=== PATIENT | female | born 1975 | race Caucasian/White ===

== ENCOUNTER 2019-11-21 13:55 | Emergency (ER) | payer OTHER, SELFPAY ==
[2019-11-21 14:09] VITALS: BP 164/99; PULSE 84; RESP 16; TEMP 36.9; O2SAT 97; BMI 29.5
--- NOTE | 2019-11-21 14:25 | XR_ITS ---
WS: [id number] Portable AP upright chest, 11/21/2019 Clinical Data: indigestion/chest pain Comparison: None. Findings: No nodules, masses or effusions are seen. The heart is normal. The pulmonary vascularity is not increased. No pneumonia or pneumothorax is seen. XR/XR chest 1V [id number] Impression: Negative chest.
--- NOTE | 2019-11-21 14:26 | ECG_ITS ---
Measurements Intervals [place] Rate: 74 P: 53 RI: 112 QRS: 26 QRSD: 89 T: 14 QT: 357 QTc: 396 SINUS RHYTHM WITH SHORT RI INTERVAL NONSPECIFIC T-WAVE ABNORMALITY Compared to ECG 04/19/2016 12:25:18 No significant changes Electronically Signed On 11-21-2019 17:08:46 SPEECH AND HEARING CLINIC DIRECTOR by Sophia Centeno M.D. [id number]
[2019-11-21 15:12] LABS: Basophils # 0.1 10^3/uL (0.0-0.1); Basophils % 0.5 %; Eosinophils # 0.1 10^3/uL (0.0-0.8); Hematocrit 35.1 % (37.0-47.0); Hemoglobin 10.7 g/dL (11.5-15.3); Lymphocytes # 2.6 10^3/uL (0.8-4.8); Lymphocytes % 23.5 %; Mean Corpuscular HGB Conc 30.5 g/dL (30.0-36.0); Mean Corpuscular Hemoglobin 24.4 pg (28.0-34.0); Mean Platelet Volume 8.8 fL (7.4-10.4); Monocytes # 0.8 10^3/uL (0.2-0.9); Monocytes % 7.2 %; Neutrophils # 7.5 10^3/uL (1.8-7.7); Neutrophils % 67.5 %; Nucleated Red Blood Cells % 0 %; Platelet Count 444 10^3/cmm (130-400); Red Blood Count 4.39 10^6/uL (4.1-5.3); Red Cell Distribution Width 14.6 % (12.1-15.1); White Blood Count 11.1 10^3/uL (4.0-10.0)
[2019-11-21 15:56] LABS: Alanine Aminotransferase 11 U/L (0-33); Albumin Level 4.8 g/dL (3.5-5.2); Alkaline Phosphatase 83 IU/L (35-105); Aspartate Amino Transferase 14 U/L (0-32); Blood Urea Nitrogen 10 mg/dL (6-20); Calcium 9.5 mg/Dl (8.6-10.0); Carbon Dioxide 23 mmol/L (22-29); Chloride 103 mmol/L (98-107); Globulin 2.6 g/dL (1.3-4.6); Glomerular Filtration Rate 78.3 mL/min (90-130); Glucose 92 mg/dL (74-109); Sodium 137 mmol/L (136-145); Total Bilirubin 0.2 mg/dL (0.15-1.2); Total Protein 7.4 g/dL (6.6-8.7)
[2019-11-21 15:58] LABS: Troponin(5th) Baseline 6 ng/mL (0-10)
[2019-11-21 17:16] LABS: Troponin 5 2HR 8.27 ng/mL (0-10)
[2019-11-21 17:54] LABS: Troponin 5 2HR Delta 2.27 ABS# (0-10)
--- NOTE | 2019-11-21 19:10 | W.ED.GENADLT ---
HPI - General Adult General: Chief complaint: General Medical, Adult Stated complaint: high bp Time Seen by Provider: 11/21/19 19:10 History of Present Illness: MD complaint: b/p up last couple of days, family hx, pt is smoker, had nose bleed yesterd Onset (ago): day(s) Associated symptoms: Deny chest pain, dyspnea, headache(s), nausea, rash or vomiting Review of Systems Const: Denies: fever, chills or body aches Eyes: Denies: change in vision or blurry vision ENMT: Denies: throat pain or nasal congestion Card: Denies: chest pain or shortness of breath on exertion Resp: Denies: shortness of breath, productive cough or non-productive cough GI: Denies: abdominal pain, nausea or vomiting Musc: Denies: extremity pain Skin/Breast: Denies: rash Neuro: Denies: headache Psych: Denies: anxiety or depression Berny/Lymph: Denies: easy bruising PFSH ED PFSH: Statuses (acute, chronic, etc) shown below reflect problem list status as previously entered and may not be historically accurate Family History (Updated 11/21/19 @ 19:18 by PARIS Carroll) Mother Hypertension Social History Smoking and tobacco status: current every day smoker Physical Exam Const: COMMON NORMALS: no apparent distress, average body habitus and oriented x3 HENMT: COMMON NORMALS: normocephalic HEAD & SCALP: normal to inspection and normocephalic FACE & SINUS: normal facial exam Eye: COMMON NORMALS: conjunctivae normal GENERAL EYE: normal appearance of both eyes CONJUNCTIVA: Yes conjunctivae normal Neck/C-Spine: COMMON NORMALS: no JVD Chest: COMMONS NORMALS: inspection of chest normal Resp: COMMON NORMALS: normal respiratory effort and clear to auscultation bilaterally AUSCULTATION: clear to auscultation bilaterally Cardio: COMMON NORMALS: no JVD, regular rate and regular rhythm RATE: regular rate RHYTHM: regular rhythm GI: COMMON NORMALS: normal to inspection, nondistended, normoactive bowel sounds Extremity: COMMON NORMALS: normal to inspection and full ROM Neuro: COMMON NORMALS: oriented x3 Course Vital Signs: Vital signs: Vital Signs Temperature 98.5 F 11/21/19 14:09 Pulse Rate 80 01/02/20 19:22 Respiratory Rate 18 11/21/19 19:22 Blood Pressure 153/88 11/21/19 19:22 Pulse Oximetry 96 11/21/19 19:22 [facility] - General Adult Lab Data: Labs: Lab Results 11/21/19 11/21/19 11/21/19 Range/Units 14:45 14:45 14:45 WBC 11.1 H (4.0-10.0) 10^3/ uL RBC 4.39 (4.1-5.3) 10^6/u L Hgb 10.7 L (11.5-15.3) g/dL Hct 35.1 L (37.0-47.0) % MCV 80.0 L (81-99) fL MCH 24.4 L (28.0-34.0) pg MCHC 30.5 (30.0-36.0) g/dL RDW 14.6 (12.1-15.1) % Plt Count 444 H (130-400) 10^3/c mm MPV 8.8 (7.4-10.4) fL Neut % (Auto) 67.5 % Lymph % (Auto) 23.5 % [place] % (Auto) 7.2 % Eos % (Auto) 1.0 % Baso % (Auto) 0.5 % Neut # (Auto) 7.5 (1.8-7.7) 10^3/u L Lymph # (Auto) 2.6 (0.8-4.8) 10^3/u L [place] # (Auto) 0.8 (0.2-0.9) 10^3/u L Eos # (Auto) 0.1 (0.0-0.8) 10^3/u L Baso # (Auto) 0.1 (0.0-0.1) 10^3/u L Nucleated RBC % (a uto) 0 % Nucleated RBCs # 0.0 /100WBC Sodium 137 (136-145) mmol/L Potassium 4.0 (3.5-5.1) mmol/L Chloride 103 (98-107) mmol/L Carbon Dioxide 23 (22-29) mmol/L Anion Gap 15.0 (5-19) BUN 10 (6-20) mg/dL Creatinine 0.8 (0.5-0.9) mg/dL GFR Calculation 78.3 L (90-130) mL/min Glucose 92 (74-109) mg/dL Calcium 9.5 (8.6-10.0) mg/Dl Total Bilirubin 0.2 (0.15-1.2) mg/dL AST 14 (0-32) U/L ALT 11 (0-33) U/L Alkaline Phosphata se 83 (35-105) IU/L Troponin T Baselin e 6 (0-10) ng/mL Troponin T 120 Min [place] (0-10) ng/mL Delta Troponin T (0-10) ABS# Total Protein 7.4 (6.6-8.7) g/dL Albumin 4.8 (3.5-5.2) g/dL Globulin 2.6 (1.3-4.6) g/dL 11/21/19 Range/Units 16:52 WBC (4.0-10.0) 10^3/ uL RBC (4.1-5.3) 10^6/u L Hgb (11.5-15.3) g/dL Hct (37.0-47.0) % MCV (81-99) fL MCH (28.0-34.0) pg MCHC (30.0-36.0) g/dL RDW (12.1-15.1) % Plt Count (130-400) 10^3/c mm MPV (7.4-10.4) fL Neut % (Auto) % Lymph % (Auto) % [place] % (Auto) % Eos % (Auto) % Baso % (Auto) % Neut # (Auto) (1.8-7.7) 10^3/u L Lymph # (Auto) (0.8-4.8) 10^3/u L [place] # (Auto) (0.2-0.9) 10^3/u L Eos # (Auto) (0.0-0.8) 10^3/u L Baso # (Auto) (0.0-0.1) 10^3/u L Nucleated RBC % (a uto) % Nucleated RBCs # /100WBC Sodium (136-145) mmol/L Potassium (3.5-5.1) mmol/L Chloride (98-107) mmol/L Carbon Dioxide (22-29) mmol/L Anion Gap (5-19) BUN (6-20) mg/dL Creatinine (0.5-0.9) mg/dL GFR Calculation (90-130) mL/min Glucose (74-109) mg/dL Calcium (8.6-10.0) mg/Dl Total Bilirubin (0.15-1.2) mg/dL AST (0-32) U/L ALT (0-33) U/L Alkaline Phosphata se (35-105) IU/L Troponin T Baselin e (0-10) ng/mL Troponin T 120 Min [place] 8.27 (0-10) ng/mL Delta Troponin T 2.27 (0-10) ABS# Total Protein (6.6-8.7) g/dL Albumin (3.5-5.2) g/dL Globulin (1.3-4.6) g/dL Discharge Plan Discharge Patient Disposition: Home, Self-Care Clinical Impression: HTN (hypertension) Qualifiers: Hypertension type: essential hypertension Qualified Code(s): I10 - Essential (primary) hypertension Condition: Stable Prescriptions: No Action No Known Home Medications RF: 0 Referrals: Dhruv Aguilar [Family Provider] - Patient Instructions: Chronic Hypertension (ED) Activity Restrictions/Additional Instructions: follow up with family provider, take medicine as prescribed Coding Level of Care Code ED Api Product Manager for Chg Fwd Exam Problem Focused
[2019-11-21 19:22] VITALS: BP 153/88; PULSE 80; RESP 18; O2SAT 96
[2019-11-21] MEDS: lisinopril 10 mg Tablet PO (19:28)
[2019-11-21 19:46] VITALS: BP 166/106; PULSE 70; RESP 18; TEMP 36.8; O2SAT 97
--- NOTE | 2019-11-21 20:26 | ECG_ITS ---
Measurements Intervals [place] Rate: 69 P: 53 TN: 113 QRS: 22 QRSD: 98 T: 28 QT: 384 QTc: 414 SINUS RHYTHM WITH SHORT [place] INTERVAL Compared to ECG 04/19/2016 12:25:18 T-wave abnormality no longer present Electronically Signed On 11-21-2019 17:09:51 QUENCHING MACHINE OPERATOR by Sophia Centeno M.D. [id number]
== END 2019-11-21 19:50 | disposition home or self-care (01) ==
PROVIDERS: Physician Assistant; Emergency Provider Nurse Practitioner Family; Family Provider Physician Assistant
DX: I10 Essential (primary) hypertension (principal); F17.210 Nicotine dependence, cigarettes, uncomplicated
CPT/HCPCS: 36415; 71045; 80053; 84484; 85025; 93005; 99281

== ENCOUNTER 2022-02-16 02:54 | Emergency (ER) | payer SELFPAY ==
[2022-02-16 02:59] VITALS: BP 167/111; PULSE 76; RESP 19; O2SAT 98; BMI 22.0
--- NOTE | 2022-02-16 03:04 | CTR_ITS ---
PROCEDURE INFORMATION: Exam: CT Head Without Contrast Exam date and time: 02/16/2022 3:25 AM Age: 46 years old Clinical indication: Pain; Headache; Patient HX: C/O migraine with hypertension. ; Additional info: GALVAN TECHNIQUE: Imaging protocol: Computed tomography of the head without contrast. Radiation optimization: All CT scans at this facility use at least one of these dose optimization techniques: automated exposure control; mA and/or kV adjustment per patient size (includes targeted exams where dose is matched to clinical indication); or iterative reconstruction. COMPARISON: No relevant prior studies available. RADIATION DOSE METRICS: Total DLP (mGy-cm): 1315.35 FINDINGS: Brain: No acute intracranial hemorrhage or mass effect. No definite acute infarct by CT. Cerebral ventricles: Ventricle size is normal for age. Paranasal sinuses: Included paranasal sinuses are essentially clear. Mastoid air cells: No significant acute finding. Vasculature: Vascular calcifications in the internal carotid and vertebral basilar systems. Bones/joints: No definite acute skull fracture. Soft tissues: No significant acute finding. CT/CT head wo con* [id number] IMPRESSION: 1. No acute intracranial hemorrhage or mass effect. 2. Other findings discussed above. 3. Some limitations due to artifact from patient motion.
--- NOTE | 2022-02-16 03:06 | ED_ITS ---
HPI - Headache General: Chief Complaint: Headache Stated Complaint: Migrane Headache with High Blood Pressure Time Seen by Provider: 02/16/22 02:55 Source: patient Mode of arrival: ambulatory Limitations: no limitations History of Present Illness: 46-year-old female who states that she has had a headache since roughly 9 PM. States she does have a history of high blood pressure supposed to be on lisinopril has not been taking it for months. States that her blood pressure is high and she gets headaches like this when she gets hypertension. States the headaches an 8 out of 10 denies being the worst headache of her life denies any vomiting denies any fevers. She denies any worsening improving factors. Associated symptoms: Deny chest pain, fever(s), nausea, rash or vomiting Review of Systems Const: Denies: fever(s), chills, body aches or change in appetite Eyes: Denies: blurry vision or eye discomfort ENMT: Denies: throat pain or dental pain Card: Denies: chest pain Resp: Denies: dyspnea GI: Denies: abdominal pain, nausea, vomiting or diarrhea : Denies: dysuria Musc: Denies: neck pain or back pain Skin/Breast: Denies: rash Neuro: Reports: headache(s) Psych: Denies: depression Berny/Lymph: Denies: easy bruising All/Imm: Denies: urticaria PFSH ED PFSH: Medical History Hypertension Family History Mother Hypertension Social History Smoking and tobacco status: current every day smoker Physical Exam Const: COMMON NORMALS: no acute distress, patient oriented x3 and healthy appearing HENMT: COMMON NORMALS: normocephalic and atraumatic HEAD & SCALP: normocephalic and atraumatic Eye: COMMON NORMALS: Equal, round and reactive pupils present and EOMs intact bilaterally PUPIL: Yes Equal, round and reactive pupils present Neck/C-Spine: COMMON NORMALS: full ROM and supple Chest: COMMONS NORMALS: normal inspection of the chest and normal palpation of entire chest wall Resp: COMMON NORMALS: normal respiratory effort, No retractions, No use of accessory muscles and clear to auscultation bilaterally AUSCULTATION: clear to auscultation bilaterally Cardio: COMMON NORMALS: regular rate, regular rhythm and No murmurs present (Cardio) RATE: regular rate RHYTHM: regular rhythm GI: COMMON NORMALS: Normal to inspection, nondistended, normoactive bowel sounds present, Soft to palpation, non-tender and no masses PALPATION: Yes Soft to palpation Extremity: COMMON NORMALS: normal to inspection and full ROM Neuro: COMMON NORMALS: patient oriented x3, moves all extremities and no focal motor deficits Psych: COMMON NORMALS: mental status grossly normal, Normal thought process present and cooperative THOUGHT PROCESS: Normal thought process present Skin: COMMON NORMALS: no rashes or lesions noted and no wounds GENERAL SKIN EXAM: no rashes or lesions noted Course Vital Signs: Vital signs: Vital Signs Pulse Rate 76 02/16/22 04:08 Respiratory Rate 18 02/16/22 04:08 Blood Pressure 146/81 02/16/22 04:08 Pulse Oximetry 98 02/16/22 04:08 MDM - Headache Medical Decision Making Patient presents here with a headache that is likely blood pressure related her headaches much improved here after Reglan and Benadryl blood pressure is improved as well. She has been noncompliant on her blood pressure medicines head CT is normal she has no signs of meningitis or subarachnoid hemorrhage or aneurysm. We will start her back on her lisinopril she is to follow-up with PCP and return if worsening. Lab Data Radiology Impressions Head CT 02/16/22 03:04 IMPRESSION: 1. No acute intracranial hemorrhage or mass effect. 2. Other findings discussed above. 3. Some limitations due to artifact from patient motion. Discharge Plan Discharge Patient Disposition: Home Clinical Impression: Headache Qualifiers: Headache type: unspecified Headache chronicity pattern: acute headache Intractability: not intractable Qualified Code(s): R51.9 - Headache, unspecified Hypertension Qualifiers: Hypertension type: unspecified Qualified Code(s): I10 - Essential (primary) hypertension Condition: Stable Prescriptions: Continued lisinopril 10 mg tablet 10 mg PO DAILY Qty: 60 0RF Discharge Orders: Discharge ED (Routine); Ordered 02/16/22 Ordered By: Tre Regalado Referrals: Dhruv Aguilar [Referring] - 1-3 days Discharge Diet: Advance as tolerated Discharge Activity: Resume usual activity Patient Instructions: Acute Headache (ED), Hypertension (ED) Coding Level of Care Code ED Vice President [employer] Insights for Chg Fwd Exam Comprehensive
[2022-02-16] MEDS: metoclopramide 5 mg/mL SDV 2 mL 10 MG IVP (03:11)
[2022-02-16] MEDS: diphenhydrAMINE 50 mg/mL SDV 1mL IVP (03:12)
[2022-02-16 04:08] VITALS: BP 146/81; PULSE 76; RESP 18; O2SAT 98
[2022-02-16 04:19] VITALS: BP 146/81; PULSE 76; RESP 18; O2SAT 98
== END 2022-02-16 04:20 | disposition home or self-care (01) ==
PROVIDERS: Emergency Provider Emergency Medicine
DX: R51.9 Headache, unspecified (principal); I10 Essential (primary) hypertension; F17.200 Nicotine dependence, unspecified, uncomplicated
CPT/HCPCS: 70450; 96374; 96375; 99283; J1200; J2765

== ENCOUNTER 2025-05-30 06:21 | Observation (INO) | payer SELFPAY ==
[2025-05-30] VITALS (49 sets, daily range): BP systolic 130–187; BP diastolic 78–106; PULSE 49–70; RESP 10–21; TEMP 36.6–36.7; O2SAT 96–100; BMI 24.7
--- NOTE | 2025-05-30 06:24 | XR_ITS ---
WS: [id number] Exam: XR chest 1V portable [id number] Date/Time of Exam: 05/30/2025 7:23 AM Reason For Exam: chest pain Comparison 11/21/2019. Lungs are fully expanded and clear. Normal cardiomediastinal silhouette and regional bony elements. No pleural effusions. XR/XR chest 1V portable [id number] IMPRESSION: 1. Normal chest.
--- NOTE | 2025-05-30 06:24 | ED_ITS ---
HPI - Chest Pain 2 General: Chief Complaint: Chest Pain Stated Complaint: Chest Pain Time Seen by Provider: 05/30/25 06:23 History of Present Illness: 49-year-old female presents emergency ro om complaining of left breast pain. It is worse when she coughs or lifts her arm. Began 3 days ago. Radiates into the left axilla. Patient notices the pain is worse when she sits up or leans forward and takes a deep breath as opposed to when she is reclining. She is a smoker also uses medical marijuana. She indicates the most tender spot is underneath the breast and the left lower outer quadrant. No fever sweats chills no productive cough. No hemoptysis. Associated symptoms: Deny abdominal pain, dyspnea or fever(s) Related Data Home Medications ?Medication ?Instructions ?Recorded ?Confirmed Medical Marijuana 1 - 2 g inhalation QPM PRN P ain 05/30/25 05/30/25 nicotine (polacrilex) 4 mg buccal 4 mg buccal Q4H PRN stop smoking 05/30/25 05/30/25 lozenge Allergies Allergy/AdvReac Type Severity Reaction Status Date / Time No Known Allergies Allergy Verified 05/30/25 06:35 Review of Systems 2 Const: Denies: fever(s) or chills Card: Reports: chest pain Resp: Denies: dyspnea GI: Denies: abdominal pain : Denies: dysuria, urinary frequency or urinary urgency Musc: Denies: neck pain or back pain Skin/Breast: Denies: rash PFSH ED 2 PFSH: Medical History Hypertension Family History Mother Hypertension Social History Smoking and tobacco/nicotine status: current every day tobacco/nicotine user Alcohol intake: never Substance/Drug Use: current Substance/Drug use type: Marijuana Physical Exam 2 Const: GENERAL APPEARANCE: cooperative ORIENTATION/CONSCIOUSNESS: Yes awake, Yes oriented to person, Yes oriented to place and Yes oriented to time HENMT: COMMON NORMALS: normocephalic, atraumatic and hearing grossly normal bilaterally HEAD & SCALP: normocephalic and atraumatic Resp: COMMON NORMALS: normal respiratory effort, No retractions, No use of accessory muscles and clear to auscultation bilaterally AUSCULTATION: clear to auscultation bilaterally Cardio: COMMON NORMALS: regular rate, regular rhythm and No murmurs present (Cardio) RATE: regular rate RHYTHM: regular rhythm GI: COMMON NORMALS: Soft to palpation and No hepatosplenomegaly present A USCULTATION: Yes normoactive bowel sounds PALPATION: Yes Soft to palpation, No Tenderness to palpation present (GI), No Guarding due to palpation present (GI) and Yes No hepatosplenomegaly present Extremity: COMMON NORMALS: normal to inspection, capillary refill normal, no clubbing, cyanosis or edema, no calf tenderness and no pedal edema Neuro: SENSORIUM/ORIENTATION: Yes oriented to person, Yes oriented to place and Yes oriented to time Skin: COMMON NORMALS: no rashes or lesions noted GENERAL SKIN EXAM: no rashes or lesions noted Course 2 Vital Signs: Vital signs: Vital Signs Temperature 97.8 F 05/30/25 16:00 Pulse Rate 60 05/30/25 16:00 Respiratory Rate 17 05/30/25 16:00 Blood Pressure 159/97 05/30/25 16:00 Pulse Oximetry 98 05/30/25 16:00 Oxygen Delivery Me thod Room Air 05/30/25 16:00 MDM - Chest Pain Medical Decision Making EKG showed dynamic changes. Initial EKG shows ST depression in 2 3 aVF and in the lateral leads with T wave inversion. This corrected troponins were normal patient's symptoms had mostly resolved. Concerning however unexplained changes. Discussed with cardiology they recommend admission and early stress testing or if third troponin elevates consult cardiology. Discussed with the patient. Will admit discussed with hospitalist and cardiology as above. Medical Records I reviewed the patient's medical records. Lab Data I reviewed the patient's lab results. 05/30/25 07:07 05/30/25 07:07 Radiology Impressions Chest X-Ray 05/30/25 06:24 IMPRESSION: 1. Normal chest. Laboratory Results WBC 6.75 10^3/uL (3.29-11.43) 05/30/25 07:07 RBC 4.78 10^6/uL (3.85-5.65) 05/30/25 07:07 Hgb 14.80 g/dL (11.27-16.99) 05/30/25 07:07 Hct 42.8 % (36-47) 05/30/25 07:07 MCV 89.5 fl (85-98) 05/30/25 07:07 MCH 31.0 pg (27-33) 05/30/25 07:07 MCHC 34.6 g/dL (30-55) 05/30/25 07:07 RDW 12.9 % (12.1-15.1) 05/30/25 07:07 Plt Count 305 10^3/cmm (157-399) 05/30/25 07:07 MPV 8.8 fL (7.4-10.4) 05/30/25 07:07 Neut % (Auto) 50.0 % 05/30/25 07:07 Lymph % (Auto) 37.0 % 05/30/25 07:07 [place] % (Auto) 8.1 % 05/30/25 07:07 Eos % (Auto) 3.9 % 05/30/25 07:07 Baso % (Auto) 0.9 % 05/30/25 07:07 Neut # (Auto) 3.37 10^3/uL (1.8-7.7) 05/30/25 07:07 Lymph # (Auto) 2.5 10^3/uL (0.8-4.8) 05/30/25 07:07 [place] # (Auto) 0.6 10^3/uL (0.2-0.9) 05/30/25 07:07 Eos # (Auto) 0.3 10^3/uL (0.0-0.8) 05/30/25 07:07 Baso # (Auto) 0.1 10^3/uL (0.0-0.1) 05/30/25 07:07 Nucleated RBC % (auto) 0 % 05/30/25 07:07 Nucleated RBCs # 0.0 /100WBC 05/30/25 07:07 D-Dimer 0.61 ug/mLFEU (0-0.59) H 05/30/25 07:07 Sodium 145 mmol/L (136-145) 05/30/25 07:07 Potassium 4.1 mmol/L (3.5-5.1) 05/30/25 07:07 Chloride 107 mmol/L (98-107) 05/30/25 07:07 Carbon Dioxide 24 mmol/L (22-29) 05/30/25 07:07 Anion Gap 18.1 (5-19) 05/30/25 07:07 BUN 15 mg/dL (6-20) 05/30/25 07:07 Creatinine 0.6 mg/dL (0.5-0.9) 05/30/25 07:07 GFR Calculation 106.7 mL/min (90-130) 05/30/25 07:07 Glucose 80 mg/dL (65-115) 05/30/25 07:07 Estimat Average Glucose 100 05/30/25 07:07 Hemoglobin A1c 5.1 % (4.0-6.0) 05/30/25 07:07 Calculated Osmolality 300 mOsm/kg (285-295) H 05/30/25 07:07 Calcium 9.1 mg/dL (8.5-10.5) 05/30/25 07:07 Total Bilirubin 0.3 mg/dL (0.15-1.2) 05/30/25 07:07 AST 15 U/L (0-32) 05/30/25 07:07 ALT 11 U/L (0-33) 05/30/25 07:07 Alkaline Phosphatase 82 U/L (35-105) 05/30/25 07:07 Troponin T Baseline < 6 ng/L (0-10) 05/30/25 07:07 Troponin T 120 Minute < 6.0 ng/L (0-10) 05/30/25 09:04 Delta Troponin T 0 ABS# (0-10) 05/30/25 09:04 C-Reactive Protein 3.4 mg/L (0.0-4.9) 05/30/25 07:07 NT-Pro-B Natriuret Pep 38 pg/mL (0-125) 05/30/25 07:07 Total Protein 7.1 g/dL (6.6-8.7) 05/30/25 07:07 Albumin 4.4 g/dL (3.5-5.2) 05/30/25 07:07 Globulin 2.7 g/dL (1.3-4.6) 05/30/25 07:07 Triglycerides 97 mg/dL (0-150) 05/30/25 07:07 Cholesterol 158 mg/dL (0-200) 05/30/25 07:07 LDL Cholesterol, Calc 81 mg/dL (50-129) 05/30/25 07:07 HDL Cholesterol 58 mg/dL (60-100) L 05/30/25 07:07 LDL/HDL Ratio 1.40 RATIO (0.00-3.22) 05/30/25 07:07 Cholesterol/HDL Ratio 2.72 mg/dL (0.0-4.40) 05/30/25 07:07 TSH 0.91 uIU/mL (0.27-4.20) 05/30/25 07:07 HCG, Qual Negative (Negative) 05/30/25 07:07 All radiology interpretation(s) finalized by discharge EKG Data EKG 1: Interpretation: EKG May 30, 2025 6:30 AM. Sinus bradycardia. T wave inversion in 2 3 aVF as well as in V3 through V6. Very slight ST depression noted. All of these findings are new from comparison to a EKG on November 21, 2019. No ST elevation. EKG 2: Interpretation: EKG 05/30/2025 814 sinus bradycardia. VA interval 112 QTc 388 rate of 48 T wave inversion is still present in the 3 and aVF. T waves are now upright in V345 and 6 as well as lead II. ST depression seen previously has resolved. Discharge Plan Discharge Patient Disposition: Admitted As Inpatient Admit Provider: Bertin Hou Clinical Impression: Acute electrocardiogram changes, Chest pain Condition: Stable Coding Level of Care Code ED Leather Dresser for Stacey Monsalve
--- NOTE | 2025-05-30 06:30 | ECG_ITS ---
[employer] Test Date: 2025-05-30 Pat Name: Bella Aguayo Department: Room: Gender: Female Explosive Operator Bomb: : [id number] Requested By: Renny Monzon Order Number: [id number] Harden MD: Caren Trinidad M.D. Measurements Intervals [place] Rate: 47 P: 77 LA: 118 QRS: 77 QRSD: 89 T: -48 QT: 375 QTc: 332 Interpretive Statements SINUS BRADYCARDIA WITH SHORT LA INTERVAL ST DEVIATION AND MODERATE T-WAVE ABNORMALITY, CONSIDER LATERAL ISCHEMIA [-0.1+ mV T-WAVE IN I/aVL/V5/V6] ST DEVIATION AND MODERATE T-WAVE ABNORMALITY, CONSIDER INFERIOR ISCHEMIA [-0.1+ mV T-WAVE IN II/aVF] Compared to ECG 11/21/2019 17:01:06 T-wave abnormality now present Possible ischemia now present Sinus rhythm no longer present Electronically Signed On 05-30-2025 15:09:29 CDT by Caren Trinidad M.D. [id number] [id number]
--- OUTSIDE RECORDS SUMMARY | 2025-05-30 06:42 | XMS_ITS | Patient Health Record ---
Author Organization [facility] Address [address] [place] [address] Care Team Providers Care Sliding Joint Maker Name Role Phone Dhruv Aguilar PA-C Primary Care Provider Evert Olvera Unavailable [phone] Allergies Allergen (clinical drug ingredient) Drug/Non Drug Allergy documented on EMR Reaction Allergy Type Onset Date Status NKDA : NO KNOWN DRUG ALLERGIES Unknown Drug Allergy Active Reason For Referral No Information Medications Medication SIG (Take, Route, Fr equency, Duration) Notes Start Date End Date Status Lisinopril 10 MG 1 tablet Orally Once a day Active Immunizations Vaccine Route Administration Date Status Comme nts Flucelvax Unknown 01/21/2020 Refused Social History xTobacco Use/Smoking Question Answer Notes Are you a current every day smoker PHQ-9 Question Answer Notes Little interest or pleasure in doing things Not at all Feeling down, depressed, or hopeless Not at all Trouble falling or staying asleep, or sleeping t oo much Not at all Feeling tired or having little energy Not at all Poor appetite or overeating Not at all Feeling bad about yourself, or that you are a failure, or have let yourself or your family down Not at all Trouble concentrating on thi ngs, such as reading the newspaper or watching television Not at all Moving or speaking so slowly that other people could have noticed. Or the opposite ? being so fidgety or restless that you have been moving around a lot more than usual Not at all Thoughts that you would be b bob off , or of hurting yourself in some way Not at all Total Score 0 Section Notes: Did not provide alcohol nor substance abuse hx Did not provide alcohol nor substance abuse hx Problems Problem Type SNOMED Code ICD Code Onset Dates Problem Status W/U Status Risk Notes Problem Shortness of breath (664026444) Shortness of breath (R06.02) Active [place] [facility] [id number]- Problem Chest pain (42854173) Chest pain, unspecified (R07.9) Active confirmed [facility] [id number] 73-Snomed Descripti on:Chest pain Problem Localized edema ([id number]) Localized edema (R60.0) Active [place] [facility] [id number] 73-Snomed Descripti on:Locali zed edema Plan Of Treatment No Information Insurance Providers Payer Name Payer Address Payer Phone Subscriber Number Group Number Insured Name Patient Relationship to Insured Coverage Start Date Coverage End Date [facility] Plan [address] [place] [address] [phone] [id number] Bella Aguayo Self - patient is the insured Medical (General) History Medical History History ICD Code HTN Surgical History Surgery Date(Month/Year) x3 Hospitalization History Reason Date(Month/Year) x3
[2025-05-30 07:26] LABS: Hematocrit 42.8 % (36-47); Hemoglobin 14.80 g/dL (11.27-16.99); Mean Corpuscular HGB Conc 34.6 g/dL (30-55); Mean Corpuscular Hemoglobin 31.0 pg (27-33); Mean Corpuscular Volume 89.5 fl (85-98); Nucleated Red Blood Cells % 0 %; Platelet Count 305 10^3/cmm (157-399); Red Blood Count 4.78 10^6/uL (3.85-5.65); White Blood Count 6.75 10^3/uL (3.29-11.43)
[2025-05-30 07:34] LABS: Troponin(5th) Baseline < 6 ng/L (0-10)
[2025-05-30 07:36] LABS: Alanine Aminotransferase 11 U/L (0-33); Albumin Level 4.4 g/dL (3.5-5.2); Alkaline Phosphatase 82 U/L (35-105); Anion Gap 18.1 (5-19); Aspartate Amino Transferase 15 U/L (0-32); Blood Urea Nitrogen 15 mg/dL (6-20); Calcium 9.1 mg/dL (8.5-10.5); Carbon Dioxide 24 mmol/L (22-29); Chloride 107 mmol/L (98-107); Creatinine Clr Calc Pharmacy 127.0779; Globulin 2.7 g/dL (1.3-4.6); Glucose 80 mg/dL (65-115); Osmolality Calculated 300 mOsm/kg (285-295); Potassium 4.1 mmol/L (3.5-5.1); Sodium 145 mmol/L (136-145); Total Protein 7.1 g/dL (6.6-8.7)
--- NOTE | 2025-05-30 08:24 | ECG_ITS ---
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 Measurements Intervals [place] Rate: 48 P: 66 NC: 112 QRS: 68 QRSD: 89 T: -1 QT: 431 QTc: 388 Interpretive Statements SINUS BRADYCARDIA WITH SHORT NC INTERVAL NONSPECIFIC T-WAVE ABNORMALITY Compared to ECG 05/30/2025 06:30:12 Possible ischemia no longer present T-wave abnormality still present Electronically Signed On 05-30-2025 15:30:48 CDT by Caren Trinidad M.D. [id number]
[2025-05-30 09:27] LABS: Troponin 5 2HR < 6.0 ng/L (0-10); Troponin 5 2HR Delta 0 ABS# (0-10)
[2025-05-30] MEDS: lidocaine 2% viscous 15 ML, aluminum-mag hydrox-simethicon 30 ML, sucralfate oral liq 1 GM PO (09:53)
[2025-05-30] MEDS: nitroglycerin 1 gm/inch oint Pkt 1 INCH TOPICAL (11:03)
--- NOTE | 2025-05-30 11:31 | USCV_ITS ---
Olivier Bella Age: 49 Gender: F : 1975 Exam Date: 05/30/2025 14:30 Ordering Phys: Bertin Hou MD Technologist: Isidro Perez [place] [facility] [place]: unstable angina BP: 165 / 94 HR: 59 Rhythm: Sinus Technical Quality: Adequate MEASUREMENTS (Male / Female) Normal Values 2D ECHO LV Diastolic Diameter PLAX 4.0 cm 4.2 - 5.9 / 3.9 - 5.3 cm IVS Diastolic Thickness 1.0 cm 0.6 - 1.0 / 0.6 - 0.9 cm IVS Systolic Thickness 1.3 cm LVPW Diastolic Thickness 1.5 cm 0.6 - 1.0 / 0.6 - 0.9 cm LVPW Systolic Thickness 1.7 cm LVOT Diameter 2.0 cm LV Ejection Fraction 2D Teich 68.0 % LV Ejection Fraction MOD 4C 56.8 % LV Ejection Fraction MOD 2C 61.0 % LV Ejection Fraction 2C AL 62.7 % LA Diameter 3.0 cm RA Systolic Volume 4C AL 19.6 ml RA Systolic Volume 4C MOD 18.9 ml LA Sys Volume AL 32.0 cm cubed LA Sys Volume Index AL 18.2 cm cubed/m squared Aorta at Sinotubular Diameter 2.5 cm IVC Diameter 1.7 cm M-MODE LA Ao Ratio MM 1.0 AV Cusp Separation MM 1.5 cm DOPPLER AV Peak Velocity 130.0 cm/s LVOT Peak Velocity 81.0 cm/s AV Area Cont Eq vti 2.0 cm squared AV Area Cont Eq pk 2.0 cm squared MV Peak Velocity 108.7 cm/s MV Area PHT 4.1 cm squared Mitral E to A Ratio 1.0 TR Peak Velocity 355.0 cm/s TR Peak Gradient 50.4 mmHg TR Mean Velocity 252.0 cm/s TR Mean Gradient 28.7 mmHg TR Velocity Time Integral 86.4 cm PV Peak Velocity 74.0 cm/s RV Ejection Time 0.3 s FINDINGS Left Ventricle Left ventricle is normal size. LV systolic function is normal with EF of 55-60%. No regional wall motion abnormalities are seen. Right Ventricle Normal in size and function Right Atrium Normal in size Left Atrium Normal in size Mitral Valve Structurally normal valve. Mild mitral regurgitation. Aortic Valve Strucuturally normal aortic valve. Trace aortic regurgitation. No significant stenosis Tricuspid Valve Insufficient TR jet to calculate RVSP Pulmonic Valve Not well visualized Pericardium Normal Aorta Normal in size IVC Appears to be normal CONCLUSIONS LV systolic function is normal with EF of 55-60%. Mild mitral regurgitation Trace aortic regurgitation No comparison studies are available. Dax Lr MD (Electronically Signed) Final Date: 30 May 2025 21:05 S
--- NOTE | 2025-05-30 11:41 | P.HP_ITS ---
Providers/Chief Complaint 2 Admitting Physician: Bertin Hou MD Chief Complaint: Chest Pain History of Present Illness Bella Aguayo is a 49 year old female with a past medical history of hypertension, who presents [facility] for left-sided chest pain. 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, no heavy lifting, no recent injuries, she has point tenderness on palpation of her left chest wall, specifically along left costochondral junction no lightheadedness, no dizziness, no recent travel, no calf pain, calf swelling, no hemoptysis Review of Systems 2 Const: Denies: fever(s) Card: Reports: chest pain Resp: Reports: pain on inspiration; Denies: dyspnea Medications/Allergies Home Medications ?Medication ?Instructions ?Recorded ?Confirmed ?Last Taken ?Type lisinopril 10 mg tablet 10 mg PO DAILY #60 tabs 01/20 Unknown Rx Allergies Allergy/AdvReac Type Severity Reaction Status Date / Time No Known Allergies Allergy Verified 05/30/25 06:35 PFSH Acute 2 PFSH: Medical History Hypertension Family History Mother Hypertension Social History (Updated 05/30/25 @ 11:46 by Bertin Hou MD) Smoking and tobacco/nicotine status: current every day tobacco/nicotine user Alcohol intake: never Substance/Drug Use: current Substance/Drug use type: Marijuana Vitals/I&O/Wt Last Vital Signs Temp 98.0 F 05/30/25 06:23 Pulse 52 L 05/30/25 11:12 Resp 21 H 05/30/25 10:00 BP 187/106 05/30/25 11:12 Pulse Ox 98 05/30/25 11:12 O2 Del Method Room Air 05/30/25 06:23 05/29/25 05/30/25 05/30/25 22:59 06:59 14:59 Intake Total 0 / 0 Balance 0 / 0 Weight last 48 hrs Weight 76.204 kg Physical Exam 2 Const: COMMON NORMALS: no acute distress and patient oriented x3 HENMT: COMMON NORMALS: normocephalic HEAD & SCALP: normocephalic Neck/C-Spine: COMMON NORMALS: no JVD Resp: COMMON NORMALS: normal respiratory effort, No retractions, No use of accessory muscles and clear to auscultation bilaterally AUSCULTATION: clear to auscultation bilaterally Cardio: COMMON NORMALS: no JVD, regular rate, regular rhythm, S1 normal heart sound present and S2 normal heart sound present RATE: regular rate RHYTHM: regular rhythm HEART SOUNDS: S1 normal heart sound present and S2 normal heart sound present GI: COMMON NORMALS: Normal to inspection, nondistended, normoactive bowel sounds present, Soft to palpation and non-tender Extremity: COMMON NORMALS: no calf tenderness and no pedal edema Neuro: COMMON NORMALS: patient oriented x3, CN's II-XII intact bilaterally and moves all extremities Psych: COMMON NORMALS: mental status grossly normal Data 05/30/25 07:07 05/30/25 07:07 A&P Assessment and plan 1. Chest pain: Plan: Chest pain -Serial EKGs, serial troponins, telemetry monitoring - Cardiac echo - Aspirin, statin, beta-diane - Full code - Lovenox for DVT prophylaxis PDMP PDMP Reviewed: Not Reviewed Attestations 2 Medical Necessity Statement*: Patient requires hospitalization, inpatient, greater than 2 midnights Diagnoses Chest pain R07.9
--- NOTE | 2025-05-30 11:47 | P.CONIM_ITS ---
<Statement entered by Dax Lr M.D - 06/01/25 14:16> Patient was evaluated and cared for in conjunction with an advanced practice practitioner.? I personally examined the patient and reviewed the chart and all pertinent data including imaging, telemetry, and laboratory results.? I discussed the patient in detail with the advanced practice practitioner.? Please see? their note for complete consult note, testing results and agreed upon plan of care for the patient. ? Patient symptoms are atypical. Related to movement. Will need stress testing. GENERAL: Patient is alert, awake and oriented x3. HEART: Regular S1 and S2 LUNGS: Clear to auscultate bilaterally. CENTRAL NERVOUS SYSTEM: Grossly nonfocal. EXTREMITIES: Lower extremities without edema bilaterally. Providers/Reason For Consult 2 Consulting Physician/Specialty*: Dr Lr, cardiology Reason for Consult*: chest pain Requesting Physician: Dr Harris Attending Physician: Bertin Hou MD History of Present Illness History of Present Illness Bella Aguayo is a 49 year old female with past history of hypertension presented to the emergency room this morning due to worsening chest pain in the left breast. The pain began on Monday or Monday and progressively has been getting worse. She noticed burping a lot on Monday and movement of the breast would relieve the burping. Since then she has not noticed feeling the need to burp or gaseous distention. She has had nausea in the morning relieved by eating, no vomiting, no diaphoresis or shortness of breath. She does note that inspiration and coughing makes the pain in her left breast worse, as well as leaning forward, laying flat on her back. Laying on the left side makes it worse, rolling to the right side improves the pain. She has been taking [id number] NSAIDs at home and attempting to stretch to relieve the pain. She has not had any recent falls or trauma to the chest. She does have a history of smoking. No previous cardiac testing in our system. Initial EKG in the emergency room showed sinus bradycardia, heart rate 47 bpm T wave inversions in the inferior and lateral leads. The second EKG in the ER shows continued bradycardic rate in the 40s but lateral T wave inversion had resolved, isolated lead 3 inversion remained. Troponin has been negative, <6. Chest x-ray is normal. CBC unremarkable, D- dimer and other labs pending. Review of Systems 2 Const: Denies: fever(s), chills, change in weight, fatigue or diaphoresis Eyes: Denies: change in vision ENMT: Denies: epistaxis Card: Denies: chest pain, palpitations, irregular heart rhythm, edema, syncope, pre-syncope, dyspnea on exertion, orthopnea or leg pain with exertion Resp: Denies: dyspnea, productive cough or wheezing GI: Denies: nausea, vomiting, hematemesis, hematochezia or melena : Denies: hematuria Musc: Denies: extremity swelling Berny/Lymph: Denies: easy bruising or easy bleeding Medications/Allergies Home Medications ?Medication ?Instructions ?Recorded ?Confirmed ?Last Taken ?Type lisinopril 10 mg tablet 10 mg PO DAILY #60 tabs 01/20 Unknown Rx Allergies Allergy/AdvReac Type Severity Reaction Status Date / Time No Known Allergies Allergy Verified 05/30/25 06:35 PFSH Acute 2 PFSH: Medical History Hypertension Family History Mother Hypertension Social History Smoking and tobacco/nicotine status: current every day tobacco/nicotine user Alcohol intake: never Substance/Drug Use: current Substance/Drug use type: Marijuana Vitals/I&O/Wt Last Vital Signs Temp 98.0 F 05/30/25 06:23 Pulse 52 L 05/30/25 11:12 Resp 21 H 05/30/25 10:00 BP 187/106 05/30/25 11:12 Pulse Ox 98 05/30/25 11:12 O2 Del Method Room Air 05/30/25 06:23 05/29/25 05/30/25 05/30/25 22:59 06:59 14:59 Intake Total 0 / 0 Balance 0 / 0 Weight last 48 hrs Weight 168 lb Physical Exam 2 Const: COMMON NORMALS: no acute distress and patient oriented x3 GENERAL APPEARANCE: cooperative and comfortable ORIENTATION/CONSCIOUSNESS: Yes awake, Yes oriented to person, Yes oriented to place and Yes oriented to time Chest: COMMONS NORMALS: normal inspection of the chest and normal palpation of entire chest wall CHEST: Yes Symmetrical chest wall rise Resp: COMMON NORMALS: normal respiratory effort, No retractions, No use of accessory muscles and clear to auscultation bilaterally EFFORT & INSPECTION: Yes symmetric chest movement AUSCULTATION: clear to auscultation bilaterally Cardio: COMMON NORMALS: regular rhythm, S1 normal heart sound present, S2 normal heart sound present, No gallops present (Cardio), No clicks present (Cardio), No murmurs present (Cardio) and No rub (Cardio) RATE: bradycardic RHYTHM: regular rhythm HEART SOUNDS: S1 normal heart sound present and S2 normal heart sound present PERIPHERAL PULSES: radial pulses present Extremity: COMMON NORMALS: no pedal edema Neuro: COMMON NORMALS: patient oriented x3 and moves all extremities S ENSORIUM/ORIENTATION: Yes oriented to person, Yes oriented to place and Yes oriented to time Data 05/30/25 07:07 05/30/25 07:07 A&P Assessment and plan 1. Hypertension: 2. Chest pain: Plan: Chest pain is felt to be atypical, likely related to musculoskeletal or pulmonary origin. Blood pressure is elevated. Will await results of echocardiogram for further plan. PDMP PDMP Reviewed: Not Reviewed Coding Level of Care Code Acute Code for [facility] Fwd Diagnoses Hypertension I10 Chest pain R07.9
[2025-05-30 11:59] LABS: HCG, Serum Qual Negative (Negative)
[2025-05-30] MEDS: pantoprazole 40 mg SDV IVP (12:00)
[2025-05-30 12:03] LABS: Estmated Average Glucose 100; Hemoglobin A1C 5.1 % (4.0-6.0)
[2025-05-30 12:16] LABS: Cholesterol 158 mg/dL (0-200); HDL Cholesterol 58 mg/dL (60-100); NT Pro B Type Natriuretic Pept 38 pg/mL (0-125); Thyroid Stimulating Hormone 0.91 uIU/mL (0.27-4.20); Triglycerides 97 mg/dL (0-150)
--- NOTE | 2025-05-30 12:24 | ECG_ITS ---
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 Measurements Intervals [place] Rate: 49 P: 54 MI: 116 QRS: 28 QRSD: 106 T: 35 QT: 431 QTc: 391 Interpretive Statements SINUS BRADYCARDIA WITH SHORT MI INTERVAL NONSPECIFIC T-WAVE ABNORMALITY Compared to ECG 05/30/2025 08:14:43 No significant changes Electronically Signed On 05-30-2025 15:28:07 CDT by Caren Trinidad M.D. [id number] [id number]
[2025-05-30 13:17] LABS: Glucose Urine UA Negative (Normal); Nitrate Urine Negative (Negative); Specific Gravity, Urine 1.014 (1.005-1.030)
[2025-05-30 13:20] LABS: Add Urine Microscopic? YES
[2025-05-30 13:43] LABS: Troponin 5 6HR < 6.0 ng/L (0-10); Troponin 5 6HR Delta 0 ng/L (0-12)
--- NOTE | 2025-05-30 13:49 | PC.PHAR ---
Patient states she has a card for Medical Marijuana. Patient stated she did do a few gummies a week or few days ago and that is when her problems started . Patient states she has TMJ and smokes 1 to 2 grams nightly and sometimes in the day if she doesn't have to work. Patient is also taking [employer] nicotine pouches and she states she uses 4to5 daily to help her stop smoking .
[2025-05-31] VITALS (18 sets, daily range): BP systolic 120–167; BP diastolic 72–97; PULSE 59–77; RESP 14–21; TEMP 36.6; O2SAT 96–99
[2025-05-31 04:09] LABS: Hematocrit 41.8 % (36-47); Hemoglobin 14.60 g/dL (11.27-16.99); Mean Corpuscular HGB Conc 34.9 g/dL (30-55); Mean Corpuscular Hemoglobin 30.9 pg (27-33); Mean Corpuscular Volume 88.6 fl (85-98); Nucleated Red Blood Cells % 0 %; Platelet Count 292 10^3/cmm (157-399); Red Blood Count 4.72 10^6/uL (3.85-5.65); White Blood Count 7.76 10^3/uL (3.29-11.43)
[2025-05-31 04:43] LABS: Anion Gap 17.7 (5-19); Blood Urea Nitrogen 13 mg/dL (6-20); Calcium 8.8 mg/dL (8.5-10.5); Carbon Dioxide 24 mmol/L (22-29); Chloride 104 mmol/L (98-107); Creatinine Clr Calc Pharmacy 140.4724; Glucose 98 mg/dL (65-115); Osmolality Calculated 294 mOsm/kg (285-295); Potassium 3.7 mmol/L (3.5-5.1); Sodium 142 mmol/L (136-145)
--- NOTE | 2025-05-31 09:28 | CTR_ITS ---
PROCEDURE INFORMATION: Exam: CTA Chest With Contrast Exam date and time: 05/31/2025 9:43 AM Age: 49 years old Clinical indication: Pain; Shortness of breath; Chest pressure; Additional info: CYRUS Lira cp TECHNIQUE: Imaging protocol: Computed tomographic angiography of the chest with contrast. Exam focused on the arteries. 3D rendering (Not supervised by radiologist): MIP and/or 3D reconstructed images were created by the technologist. Radiation optimization: All CT scans at this facility use at least one of these dose optimization techniques: automated exposure control; mA and/or kV adjustment per patient size (includes targeted exams where dose is matched to clinical indication); or iterative reconstruction. Contrast material: OMNI 350; Contrast volume: 100 ml; Contrast route: INTRAVENOUS (IV); COMPARISON: CR XR chest 1V portable [id number] 05/30/2025 7:32 AM RADIATION DOSE METRICS: Total DLP (mGy-cm): 359.21 FINDINGS: Pulmonary arteries: Normal. No pulmonary emboli. Aorta: Unremarkable. No aortic aneurysm. No aortic dissection. Lungs: Unremarkable. No consolidation. No masses. Pleural spaces: Unremarkable. No pneumothorax. No pleural effusion. Heart: Unremarkable. No cardiomegaly. No pericardial effusion. Lymph nodes: Unremarkable. No enlarged lymph nodes. Bones/joints: Unremarkable. No acute fracture. Soft tissues: Unremarkable. CT/[place] [id number] IMPRESSION: No acute findings.
[2025-05-31] MEDS: iohexol 350 mg/mL 500 mL Btl (per mL) IV (09:55)
[2025-05-31] MEDS: pantoprazole 40 mg SDV IVP (12:15)
--- NOTE | 2025-05-31 12:30 | PC.CHAP ---
Pastoral Care Encounter/Spiritual Assessment Type of Contact [] Declined route contractor visit [] Patient/Family/Request visit [] Outpatient visit [] Follow-up visit [] Physician referral [] Code/Alert [x] Routine visit [] Staff referral [] Actively dying [] Patient sleeping [] Family support [] [] Out of room [] Palliative care [] [] Receiving care in room [] Pre-surgical visit [] Trauma [] Long length of stay [] ICU visit [] Other: Relational/Emotional Strength [] Patient feels connected with others/family/visitors/staff [] Distress [] Loneliness/isolation [] Abandonment Spirituality of Patient [x] Person of Marj [] Attends Scientologist of their Marj [] Believes in Prayer [] Reads Bible or Caodaism materials [] There are Spiritual issues to be addressed Trouble Shooter Interventions [x] Prayer [] Active listening [] Non-anxious presence [] Spiritual/emotional support [] Crisis/trauma care [] Spiritual counseling [] Bereavement support [] Provided bereavement packet [] Provided Bible/devotional materials [] Provided toy/stuffed animal, coloring book to patient or family member [] Provided Communion [] Anointing/[place] [] Salvation [] Completed spiritual assessment [] Other: Impact on Illness or Injury [] Angry [] Fearful [] Anxious [] Often cries [] Exhaustion [] Unable to work [] Unable to attend yazidi [] Unable to walk/stand [] Unable to read [] Unable to drive [] Unable to eat/drink [] Unable to sleep [] Unable to be with family [] Patient intubated [] Other: Summary Time spent with patient
[2025-05-31] MEDS: methylPREDNISolone sod succ 125 mg/2 mL INJ IVP (14:02)
--- NOTE | 2025-05-31 14:04 | PM.DCS ---
Discharge Providers Date of Admission: 05/30/25 10:59 Date of Discharge: May 31, 2025 Attending Provider at Admission: Bertin Hou MD Attending Provider at Discharge: Bertin Hou MD Diagnoses at Discharge Discharge Diagnosis 1. Hypertension: 2. Chest pain: Reason for Visit Reason for Visit: Chest Pain Hospital Course Hospital Course Bella Aguayo is a 49 year old female with a past medical history of hypertension, who presents [facility] for left-sided chest pain. 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 Mild mitral regurgitation Trace aortic regurgitation No comparison studies are available. - CT angiogram of the chest negative for PE - Patient's chest discomfort persisted but was atypical, more musculoskeletal reported pain upon palpation of left chest wall, along left breast, also reported pleurisy, changes with position, pain is associated with left shoulder movement, although minimal today, improved with morphine, tramadol, - Lungs clear to auscultation - ESR 17 - No recurrent chest discomfort the afternoon of 05/31/2025 -Chest pain does seem atypical, she has chest discomfort upon palpation of left costochondral junction, left lateral chest wall, seems more musculoskeletal, however cannot rule out underlying cardiac etiology given risk factors -Discussed with the patient would recommend keeping her till Monday to do stress testing, unfortunately cannot do the stress test over the weekend, and our stress lab is down on Monday so we can do it till Monday - Patient was adamant about going home -Discussed morbidity and mortality associated with CAD, she voices understanding, all questions answered, still requesting to go home -Discussed risk and benefits, she voiced understanding, all questions answered, wants to go home, discussed that if she has any chest discomfort to go to emergency room - Discussed discharging on aspirin, statin, nitro as needed for chest pain - For her blood pressure discharged on chlorthalidone - Clonidine as needed for hypertensive emergency - For anti-inflammatory coverage discharged on prednisone, tramadol as needed - For tramadol please do not drive or operate machinery or drink while taking medication Physical Exam Const: COMMON NORMALS: no acute distress and patient oriented x3 Resp: COMMON NORMALS: normal respiratory effort, No retractions, No use of accessory muscles and clear to auscultation bilaterally AUSCULTATION: clear to auscultation bilaterally Cardio: COMMON NORMALS: regular rate, regular rhythm, S1 normal heart sound present and S2 normal heart sound present RATE: regular rate RHYTHM: regular rhythm HEART SOUNDS: S1 normal heart sound present and S2 normal heart sound present GI: COMMON NORMALS: Normal to inspection, nondistended, normoactive bowel sounds present and non-tender Extremity: COMMON NORMALS: no calf tenderness and no pedal edema Neuro: COMMON NORMALS: patient oriented x3 Psych: COMMON NORMALS: mental status grossly normal Discharge Data Studies Completed and Pending Completed Studies During Hospitalization Category Date Time Status CT angio chest PE protcl [id number] Stat Cat Scan 05/31/25 09:28 Completed XR chest 1V portable [id number] Stat Exams 05/30/25 06:24 Completed CV. echo complete* [id number] Routine Ultrasound 05/30/25 11:31 Completed Pending at discharge Category Date Time Status Basic Metabolic Panel AM LABS Lab 06/01/25 04:00 Ordered Basic Metabolic Panel AM LABS Lab 06/02/25 04:00 Ordered Complete Blood Count w/Auto AM LABS Lab 06/01/25 04:00 Ordered Complete Blood Count w/Auto AM LABS Lab 06/02/25 04:00 Ordered Radiology Impressions Chest X-Ray 05/30/25 06:24 IMPRESSION: 1. Normal chest. Chest CTA 05/31/25 09:28 IMPRESSION: No acute findings. Laboratory Results WBC 7.76 10^3/uL (3.29-11.43) 05/31/25 02:39 RBC 4.72 10^6/uL (3.85-5.65) 05/31/25 02:39 Hgb 14.60 g/dL (11.27-16.99) 05/31/25 02:39 Hct 41.8 % (36-47) 05/31/25 02:39 MCV 88.6 fl (85-98) 05/31/25 02:39 MCH 30.9 pg (27-33) 05/31/25 02:39 MCHC 34.9 g/dL (30-55) 05/31/25 02:39 RDW 12.9 % (12.1-15.1) 05/31/25 02:39 Plt Count 292 10^3/cmm (157-399) 05/31/25 02:39 MPV 8.9 fL (7.4-10.4) 05/31/25 02:39 Neut % (Auto) 35.3 % 05/31/25 02:39 Lymph % (Auto) 49.9 % 05/31/25 02:39 [place] % (Auto) 9.3 % 05/31/25 02:39 Eos % (Auto) 4.4 % 05/31/25 02:39 Baso % (Auto) 0.8 % 05/31/25 02:39 Neut # (Auto) 2.75 10^3/uL (1.8-7.7) 05/31/25 02:39 Lymph # (Auto) 3.9 10^3/uL (0.8-4.8) 05/31/25 02:39 [place] # (Auto) 0.7 10^3/uL (0.2-0.9) 05/31/25 02:39 Eos # (Auto) 0.3 10^3/uL (0.0-0.8) 05/31/25 02:39 Baso # (Auto) 0.1 10^3/uL (0.0-0.1) 05/31/25 02:39 Nucleated RBC % (auto) 0 % 05/31/25 02:39 Nucleated RBCs # 0.0 /100WBC 05/31/25 02:39 ESR 17 mm/hr (0-15) H 05/31/25 02:39 D-Dimer 0.61 ug/mLFEU (0-0.59) H 05/30/25 07:07 Sodium 142 mmol/L (136-145) 05/31/25 02:39 Potassium 3.7 mmol/L (3.5-5.1) 05/31/25 02:39 Chloride 104 mmol/L (98-107) 05/31/25 02:39 Carbon Dioxide 24 mmol/L (22-29) 05/31/25 02:39 Anion Gap 17.7 (5-19) 05/31/25 02:39 BUN 13 mg/dL (6-20) 05/31/25 02:39 Creatinine 0.5 mg/dL (0.5-0.9) 05/31/25 02:39 GFR Calculation 131.7 mL/min (90-130) H 05/31/25 02:39 Glucose 98 mg/dL (65-115) 05/31/25 02:39 Estimat Average Glucose 100 05/30/25 07:07 Hemoglobin A1c 5.1 % (4.0-6.0) 05/30/25 07:07 Calculated Osmolality 294 mOsm/kg (285-295) 05/31/25 02:39 Calcium 8.8 mg/dL (8.5-10.5) 05/31/25 02:39 Total Bilirubin 0.3 mg/dL (0.15-1.2) 05/30/25 07:07 AST 15 U/L (0-32) 05/30/25 07:07 ALT 11 U/L (0-33) 05/30/25 07:07 Alkaline Phosphatase 82 U/L (35-105) 05/30/25 07:07 Troponin T Baseline < 6 ng/L (0-10) 05/30/25 07:07 Troponin T 120 Minute < 6.0 ng/L (0-10) 05/30/25 09:04 Delta Troponin T 0 ABS# (0-10) 05/30/25 09:04 Troponin T Hi Sens 6Hr < 6.0 ng/L (0-10) 05/30/25 13:09 Troponin T Hi Sens 6Hr Delta 0 ng/L (0-12) 05/30/25 13:09 C-Reactive Protein 3.0 mg/L (0.0-4.9) 05/31/25 02:39 NT-Pro-B Natriuret Pep 38 pg/mL (0-125) 05/30/25 07:07 Total Protein 7.1 g/dL (6.6-8.7) 05/30/25 07:07 Albumin 4.4 g/dL (3.5-5.2) 05/30/25 07:07 Globulin 2.7 g/dL (1.3-4.6) 05/30/25 07:07 Triglycerides 97 mg/dL (0-150) 05/30/25 07:07 Cholesterol 158 mg/dL (0-200) 05/30/25 07:07 LDL Cholesterol, Calc 81 mg/dL (50-129) 05/30/25 07:07 HDL Cholesterol 58 mg/dL (60-100) L 05/30/25 07:07 LDL/HDL Ratio 1.40 RATIO (0.00-3.22) 05/30/25 07:07 Cholesterol/HDL Ratio 2.72 mg/dL (0.0-4.40) 05/30/25 07:07 TSH 0.91 uIU/mL (0.27-4.20) 05/30/25 07:07 HCG, Qual Negative (Negative) 05/30/25 07:07 Urine Color Yellow (Yellow) 05/30/25 12:53 Urine Appearance Clear (CLEAR) 05/30/25 12:53 Urine pH 6.5 (5-7) 05/30/25 12:53 Ur Specific [place] 1.014 (1.005-1.030) 05/30/25 12:53 Urine Protein Negative (Negative) 05/30/25 12:53 Urine Glucose (UA) Negative (Normal) 05/30/25 12:53 Urine Ketones Negative (Negative) 05/30/25 12:53 Urine Blood Negative (Negative) 05/30/25 12:53 Urine Nitrate Negative (Negative) 05/30/25 12:53 Urine Bilirubin Negative (Negative) 05/30/25 12:53 Urine Urobilinogen 0.2 mg/dL (Negative) 05/30/25 12:53 Ur Leukocyte Esterase Negative (Negative) 05/30/25 12:53 Urine RBC 0-2 /hpf (0-2) 05/30/25 12:53 Urine WBC 0-5 /hpf (0-5) 05/30/25 12:53 Ur Squamous Epith Cells 0-5 /hpf (0-5) 05/30/25 12:53 Amorphous Sediment Not Reportable 05/30/25 12:53 Urine Bacteria None seen /hpf (NONE) 05/30/25 12:53 Hyaline Casts 0.40 /lpf 05/30/25 12:53 Vitals Last Vital Signs Temp 97.9 F 05/31/25 08:00 Pulse 63 05/31/25 08:00 Resp 17 05/31/25 08:00 BP 167/84 05/31/25 08:00 Pulse Ox 96 05/31/25 08:00 O2 Del Method Room Air 05/31/25 03:35 Discharge Plan Discharge Patient Disposition: Home Condition: Stable Prescriptions: New tramadol 50 mg Tablet 50 mg PO Q8H PRN (Reason: Moderate Pain) 5 Days Qty: 15 0RF aspirin 81 mg Tablet,Delayed Release (Dr/Ec) 81 mg PO DAILY 30 Days Qty: 30 0RF atorvastatin 40 mg Tablet 40 mg PO BEDTIME 30 Days Qty: 30 0RF prednisone 20 mg tablet 20 mg PO DAILY 3 Days Qty: 3 0RF clonidine HCl 0.1 mg tablet 0.1 mg PO BID PRN (Reason: for sbp>180 or dbP>100) 30 Days Qty: 60 0RF chlorthalidone 25 mg Tablet 25 mg PO DAILY 30 Days Qty: 30 0RF nitroglycerin 0.4 mg tablet, sublingual 0.4 mg sublingual Q5M PRN (Reason: chest pain) 30 Days Qty: 30 0RF Rx Instructions: do not exceed 3 doses per episode Continued nicotine (polacrilex) 4 mg Lozenge 4 mg BUCCAL Q4H PRN (Reason: stop smoking) Medical Marijuana 1 - 2 g inhalation QPM PRN (Reason: Pain) 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 OK for DC: Cardiology Other Ambulatory Orders: Sestamibi Stress Test Request (Routine) Timeframe: 1 Day Facility: [facility] - Location: Cardiac Diagnostic Laboratory Ordered By: Bertin Hou Referrals: Dax Lr M.D [Physician, Cardiology] - 4-7 days Discharge Diet: Cardiac Discharge Activity: Resume usual activity Patient Instructions: Opioid Safety, Patient Portal & [place] Instructions Activity Restrictions/Additional Instructions: - If you have recurrent chest pain please go to the emergency room - Please check your blood pressures twice daily - Bring your blood pressure log to primary care physician - If your systolic blood pressures greater than 180 or diastolic is greater than 100 take clonidine as prescribed - For tramadol please use sparingly, do not drive or operate machinery or drink while taking medication Discharge Attestations Time Spent in Discharge Care*: greater than 30 min Quality Metrics Clinical Quality Measures [ No reported AMI, CVA or VTE this stay] Coding Level of Care Code 76284 Total time (in minutes) for Discharge: 45 Diagnoses Hypertension I10 Hypertension type: unspecified Chest pain R07.9
== END 2025-05-31 16:29 | disposition home or self-care (01) ==
LOC: ER 09:18 → CSU 10:59
PROVIDERS: Admitting Provider Family Medicine; Emergency Provider Family Medicine; Visit Provider Family Medicine
DX: R07.9 Chest pain, unspecified (principal); I10 Essential (primary) hypertension; F12.90 Cannabis use, unspecified, uncomplicated; I34.0 Nonrheumatic mitral (valve) insufficiency; I35.1 Nonrheumatic aortic (valve) insufficiency; R00.1 Bradycardia, unspecified; F17.200 Nicotine dependence, unspecified, uncomplicated; Z82.49 Family history of ischemic heart disease and other diseases of the circulatory system
CPT/HCPCS: 36415; 71045; 71275; 80048; 80053; 80061; 81001; 83036; 83880; 84443; 84484; 84703; 85025; 85378; 85651; 86140; 93005; 93306; 94664; 96372; 96374; 96375; 96376; 99285; A9270; G0378; J1650; J2470; J2919; J9999